=== PATIENT | female | born 1985 | race American Indian/Alaskan Native ===

== ENCOUNTER 2016-05-23 15:31 | Inpatient (IN) | payer MEDICAID ==
--- NOTE | 2016-05-23 16:15 | History and Physical Report ---
History of Present Illness Date of examination: 05/23/16 Chief complaint: Oligohydramnios History of present illness: 30 year-old at 38 weeks presents for delivery; she is a [facility] patient. Essential history patient with morbid obesity was seen at the [facility] office today with oligo noted, ELE is reported as < 5. MFM recommended delivery course has been unremarkable She recently lost a 2 year old with trisomy 18 Currently denies any vaginal bleeding plus movement plus leaking fluid plus occasional contractions Status post in [place] in 2011 Past History Past Medical History: no pertinent history Past Surgical History: section MAIL DISTRIBUTOR History: denies: cancer, chlamydia, gonorrhea, hepatitis B, hepatitis C, HIV Social history: single, full code. denies: smoking, alcohol abuse, prescription drug abuse, IV drug use - Obstetrical History Expected Date of Delivery: 05/31/16 Actual Gestation: 38 Week(s) 6 Day(s) : 7 Para: 4 Hx # Term Pregnancies: 4 Number of Pregnancies: 0 Spontaneous Abortions: 2 Number of Living Children: 3 Review of Systems Constitutional: no fever, no chills, no night sweats Cardiovascular: no chest pain, no orthopnea, no syncope, no lightheadedness, no shortness of breath, no dyspnea on exertion, no paroxysmal nocturnal dyspnea Respiratory: no cough with sputum, no shortness of breath, no dyspnea on exertion Gastrointestinal: no abdominal pain, no nausea, no vomiting, no heartburn Genitourinary: leakage of fluid, no vaginal bleeding, no vaginal discharge - Physical Exam Breasts: Positive: deferred Cardiovascular: Regular rate, Normal S1, Normal S2 Lungs: Positive: Clear to auscultation, Normal air movement Abdomen: Positive: normal appearance, soft. Negative: distention, tenderness, guarding, rigidity Uterus: Positive: enlarged (Difficult to Hyperion Administrator due to body habitus), other ( Difficult to Hyperion Administrator due to body habitus) Extremities: Positive: normal - Obstetrical Cervical Dilatation: 0 (per pt from last exam) Results All other labs normal. Assessment and Plan 30 y/o at 38+6 wks with oligo -MFM recommends delivery Issues -Morbid Obesity -Prior C-S (no OP note available) -Desires permanent sterilization but consent unsigned P: -Will proceed with repeat LTCS -Patient has been consented -NB:Patient chewing gum on arrival so surgery per anesthesia clearance - Patient Problems (1) 38 weeks gestation of Current Visit: Yes Status: Acute (2) Maternal morbid obesity in third trimester, antepartum Current Visit: Yes Status: Acute (3) Oligohydramnios in third trimester Current Visit: Yes Status: Acute (4) History of Current Visit: Yes Status: Acute
[2016-05-23] MEDS ORDERED: NACL 0.9% 500 ML 500 ML IV ONE (16:25)
[2016-05-23] MEDS ORDERED: LACTATED RINGERS 2,000 ML ONE (16:31)
[2016-05-23] MEDS ORDERED: ANCEF/NS 1 GM/50 ML 50 ML IV NR (17:00)
[2016-05-23] MEDS ORDERED: ANCEF/STERILE WATER 2 GM/20 ML 20 ML IV SCH (17:00)
[2016-05-23 17:36] LABS: Basophils % (Auto) 0.3 % (0.0-1.8); Eosinophils % (Auto) 1.9 % (0.0-4.3); Hematocrit 35.8 % (30.3-42.9); Hemoglobin 11.4 gm/dl (10.1-14.3); Mean Corpuscular HGB Conc 32 % (30-34); Mean Corpuscular Hemoglobin 26 pg (28-32); Mean Corpuscular Volume 82 fl (79-97); Platelet Count 363 K/mm3 (140-440); Red Blood Count 4.36 M/mm3 (3.65-5.03); Red Cell Distribution Width 16.1 % (13.2-15.2); White Blood Count 11.6 K/mm3 (4.5-11.0)
[2016-05-23] MEDS ORDERED: PEPCID IV ONE (17:56)
[2016-05-23] MEDS ORDERED: REGLAN IV ONE (17:56)
[2016-05-23] MEDS ORDERED: BICITRA PO ONE (17:56)
[2016-05-23] MEDS ORDERED: LACTATED RINGERS 1,000 ML IV NR (18:00)
[2016-05-23] MEDS ORDERED: PITOCin/NS 20 UNIT/1000ML DRIP 1,000 ML IV NR (18:00)
--- NOTE | 2016-05-23 18:43 | Anesthesia Consultation ---
Anesthesia Consult and Med Hx Date of service: 05/23/16 - Airway Anesthetic Teeth Evaluation: Good ROM Head & Neck: Adequate Mental/Hyoid Distance: Adequate Mallampati Class: Class II Intubation Access Assessment: Probably Good - Pulmonary Exam CTA: Yes - Cardiac Exam Cardiac Exam: RRR - Pre-Operative Health Status ASA Pre-Surgery Classification: ASA3 Proposed Anesthetic Plan: Spinal - Pulmonary Hx Asthma: No Hx Sleep Apnea: No - Cardiovascular System Hx Hypertension: No Hx Coronary Artery Disease: No - Central Nervous System Hx Seizures: No Hx Psychiatric Problems: No - Endocrine Hx Renal Disease: No Hx Liver Disease: No Hx Insulin Dependent Diabetes: No Hx Hypothyroidism: No Hx Hyperthyroidism: No - Hematic Hx Anemia: No Hx Sickle Cell Disease: No - Other Systems Hx Alcohol Use: No Hx Obesity: Yes (morbid, BMI 51.6)
[2016-05-23] MEDS ORDERED: TORADOL IV PRN (18:44)
--- NOTE | 2016-05-23 18:44 | Anesthesia Day of Surgery ---
Anesthesia Day of Surgery - Day of Surgery Patient Examined: Yes Patient H&P Reviewed: Yes Patient is NPO: Yes
[2016-05-23] MEDS ORDERED: MORPHINE IV PRN ×2 (18:45→18:46)
[2016-05-23] MEDS ORDERED: MORPHINE ONE (20:20)
[2016-05-23] MEDS ORDERED: NACL 0.9% IR ONE (20:22)
[2016-05-23] MEDS ORDERED: WATER FOR IRRIG STERILE IR ONE (20:22)
[2016-05-23] MEDS ORDERED: ZOFRAN ONE (20:35)
[2016-05-23] MEDS ORDERED: ANCEF ONE (20:41)
[2016-05-23] MEDS ORDERED: NEO SYNEPHRINE/NS Syringe(OR USE) IV ONE (20:50)
[2016-05-23] MEDS ORDERED: VERSED ONE (20:57)
--- NOTE | 2016-05-23 21:51 | Operative Report ---
Operative Report Operative Report: DATE: 05/23/2016 PREOPERATIVE DIAGNOSIS: 30-year-old at 38+6 weeks, Oligohydramnios, morbid obesity, Prior POSTOP DIAGNOSIS: Same plus adhesions NAME OF PROCEDURE: Repeat low transverse section Adhesive lysis SURGEON: WHITNEY CALVILLO MD REGULATORY ADMINISTRATOR: [] ANESTHESIA: Combined spinal epidural EBL: 700 mL PATHOLOGY SPECIMEN: None URINE OUTPUT: 300 mL FINDINGS: Male infant in cephalic presentation, time of was 2058, Apgars 8 and 9, weight was 7 lbs. 4 oz. or 3288 g, normal uterus tubes and ovaries bilaterally, significant adhesions of omentum to anterior abdominal wall and uterus DESCRIPTION OF PROCEDURE: She was taken to the operating room where she was prepped and draped in a sterile fashion, she was placed in the dorsal supine position. Pfannenstiel incision was performed through her prior incisional scar which was carried through to underlying rectus fascia which was on the midline. The fascial incision was extended laterally with use of Steiner scissors , the anterior leaf was then grasped with Kochers forceps elevated dissected sharply and bluntly off the underlying rectus in a similar fashion inferior leaf was grasped elevated dissected sharply and bluntly off the underlying rectus. The rectus was in the midline, good visualization of bladder was noted. Significant adhesions were noted and adhesiolysis performed. A bladder blade was placed in the patient's pelvic cavity; bladder flap could not be created. A hysterotomy incision was then performed in the lower segment with clear amniotic fluid noted, hysterotomy incision was extended laterally with the use of fingers manually. in cephalic presentation was delivered in the usual manner; cord was clamped and cut was handed over to waiting nursery staff. The placenta was then delivered manually intact, the uterus was exteriorized cleared of all clots and debris. Hysterotomy incision was then closed in a running locked fashion with 0 Vicryl on a CTX; using the same suture was imbricate the initial layer. Interrupted [id number] stitches were used to obtain hemostasis. Uterus was then returned to the patient's pelvic cavity; peritoneal edges were grasped with hemostats and Ciara' s elevated copiously irrigation was used to clear the gutters of all clots and debris. Tercel hemostatic agent was then applied to the hysterotomy incision as a means to prevent future bleeding. The peritoneal layer was then closed in a running fashion with 2-0 Vicryl and the rectus was reapproximated with a single [id number] stitch. The fascia was closed in a running fashion with 0 Vicryl and tied in the opposite side. The subcutaneous layer was irrigated and then reapproximated with interrupted [id number] stitches. The skin was closed in a subcuticular manner with 4-0 Vicryl. She tolerated the procedure well lap and instrument counts were correct 2 she did receive 3 g of Ancef prior to incision she is transferred to PACU in stable condition thank you.
[2016-05-23] MEDS ORDERED: TYLENOL PO PRN (21:52)
[2016-05-23] MEDS ORDERED: TUCKS PAD TP PRN (21:52)
[2016-05-23] MEDS ORDERED: PHENERGAN PR PRN (21:52)
[2016-05-23] MEDS ORDERED: ZOFRAN IV PRN (21:52)
[2016-05-23] MEDS ORDERED: LANSINOH TP PRN (21:52)
[2016-05-23] MEDS ORDERED: NARCAN 0.4 MG/1 ML IV PRN (21:52)
[2016-05-23] MEDS ORDERED: SENOKOT PO PRN (21:52)
[2016-05-23] MEDS ORDERED: SODIUM CHLORIDE FLUSH SYRINGE 10 ML IV PRN (22:00)
[2016-05-23] MEDS ORDERED: PITOCin/NS 20 UNIT/1000ML DRIP 1,000 ML IV SCH (22:00)
[2016-05-23] MEDS ORDERED: D5LR 1,000 ML IV SCH (22:00)
[2016-05-24] MEDS ORDERED: BOOSTRIX IM ONE (06:00)
--- NOTE | 2016-05-24 08:17 | Progress Note ---
Assessment and Plan POD # 1 s/p Repeat LTCS -Doing well P: -Continue routine post op care -Anticipate discharge at 24-48 hours - Patient Problems (1) Status post repeat low transverse section Current Visit: Yes Status: Acute (2) 38 weeks gestation of Current Visit: Yes Status: Acute (3) Maternal morbid obesity in third trimester, antepartum Current Visit: Yes Status: Acute (4) Oligohydramnios in third trimester Current Visit: Yes Status: Acute (5) History of Current Visit: Yes Status: Acute Subjective - Subjective Date of service: 05/24/16 Principal diagnosis: POD# 1 s/p Repeat LTCS Interval history: Patient seen on exam, stable doing well. No fever or chills, appropriate lochia flow, pain well controlled Patient reports: appetite normal, voiding normally, pain well controlled Norris: doing well Objective - Vital Signs Latest vital signs: Vital Signs Temp Pulse Pulse Resp BP BP Pulse Ox 05/24/16 04:30 97.4 F L 83 20 120/44 05/24/16 00:00 97.7 F 80 20 113/54 05/23/16 22:59 16 05/23/16 22:55 81 14 102/60 100 05/23/16 22:50 82 17 94/59 100 05/23/16 22:45 79 20 110/60 100 05/23/16 22:40 81 23 101/56 100 05/23/16 22:35 51 L 17 100/51 99 05/23/16 22:30 62 17 104/56 97 05/23/16 22:25 70 22 102/65 100 05/23/16 22:20 77 21 114/66 99 05/23/16 22:18 81 23 115/73 100 05/23/16 22:15 77 22 115/73 100 05/23/16 22:12 22 05/23/16 22:10 76 25 H 115/70 100 05/23/16 22:05 82 28 H 118/70 100 05/23/16 22:00 97.7 F 93 H 24 120/70 100 05/23/16 21:56 100 05/23/16 19:25 108 H 139/83 05/23/16 19:24 98.3 F 108 H 22 139/83 05/23/16 17:44 106 H 99 05/23/16 17:39 98 H 99 01/09/17 17:34 98 H 100 05/23/16 17:29 102 H 97 05/23/16 17:24 103 H 99 05/23/16 17:19 104 H 100 05/23/16 17:14 102 H 99 05/23/16 17:09 108 H 99 05/23/16 17:04 98 H 98 05/23/16 16:59 104 H 100 05/23/16 16:54 116 H 98 05/23/16 16:50 97.5 F L 110 H 99 H 20 137/77 137/77 05/23/16 16:49 117 H 98 Intake and Output 05/23/16 05/24/16 05/24/16 22:59 06:59 14:59 Intake Total 1000 1970 Output Total 300 350 Balance 700 1620 Intake: IV 1000 1850 D5lr 1,000 ml @ 125 mls/ 500 hr IV DIRECT SPENCER Rx#: [id number] PITOCin/NS 20 UNIT/1000ML 500 DRIP 1,000 ML @ 250 mls/ hr IV TITR SPENCER Rx#: [id number] Oral 120 Output: Urine 300 350 Indwelling Catheter 250 Other: Total, Intake Amount 120 Total, Output Amount 250 Weight 140.614 kg Estimated Blood Loss 700 - Exam Abdomen: Present: normal appearance, soft. Absent: distention, tenderness, guarding, rigidity Uterus: Present: firm Extremities: Present: normal Incision: Present: dressed - Labs Labs: Abnormal lab results 05/23/16 05/23/16 Range/Units 17:15 17:15 WBC 11.6 H (4.5-11.0) K/mm3 MCH 26 L (28-32) pg RDW 16.1 H (13.2-15.2) % Frederick % (Auto) 7.7 H (0.0-7.3) % Frederick # 0.9 H (0.0-0.8) K/mm3 Seg Neutrophils # 8.0 H (1.8-7.7) K/mm3 Crossmatch See Detail
[2016-05-24 11:09] LABS: Hematocrit 33.3 % (30.3-42.9); Hemoglobin 10.7 gm/dl (10.1-14.3)
[2016-05-24] MEDS ORDERED: FLUARIX QUAD 2016-2017(36 MOS+) IM ONE (12:00)
[2016-05-24] MEDS: FEOSOL PO SCH (12:21)
[2016-05-24] MEDS: MOTRIN PO PRN ×2 (12:22→23:21)
[2016-05-24] MEDS: PRENATAL VITAMIN PO SCH (12:22)
[2016-05-24] MEDS: MYLICON PO PRN (21:36)
[2016-05-24] MEDS: MILK OF MAGNESIA PO PRN (21:36)
--- NOTE | 2016-05-25 08:16 | Progress Note ---
Assessment and Plan - Patient Problems (1) Status post repeat low transverse section Diagnosis Date: 05/25/16 Current Visit: Yes Status: Resolved Plan to address problem: A: S/P Repeat C Section - POD #2 Doing well P: May go home today Subjective - Subjective Date of service: 05/25/16 Principal diagnosis: POD# 2 - s/p Repeat LTCS Interval history: Pt is feeling well without complaints. Tolerating a reg diet without nausea or vomiting, ambulating and voiding without difficulty. She requests to go home today. Patient reports: appetite normal, voiding normally, pain well controlled, flatus , ambulating normally [place]: doing well, nursing well Objective - Vital Signs Latest vital signs: Vital Signs Temp Pulse Resp BP BP 05/24/16 23:55 98.5 F 109 H 20 147/61 05/24/16 22:00 128/84 05/24/16 20:00 98.2 F 96 H 20 144/67 05/24/16 15:40 98.4 F 97 H 20 127/68 05/24/16 13:01 97.9 F 88 20 130/70 05/24/16 08:15 98.1 F 79 18 109/56 Intake and Output 05/24/16 05/25/16 05/25/16 22:59 06:59 14:59 Intake Total 240 240 Balance 240 240 Intake: Oral 240 240 Other: Total, Intake Amount 240 240 - Exam Cardiovascular: Present: Regular rate Lungs: Present: Clear to auscultation Abdomen: Present: normal appearance, soft Uterus: Present: normal, firm, fundal height below umbilicus Extremities: Present: normal Incision: Present: normal, dry, intact, dressed
--- NOTE | 2016-05-25 08:18 | Discharge Summary ---
Providers - Providers Date of Admission: 05/23/16 16:25 Date of discharge: 05/25/16 Attending physician: WHITNEY CALVILLO Primary care physician: WHITNEY CALVILLO Hospitalization Reason for admission: section, IUP at term, other (Oligohydramnios) Delivery: Procedure: section, repeat low transverse Episiotomy: none Incision: normal, dry, intact Other procedures: none complications: none Discharge diagnosis: IUP at term delivered [place] baby: male Hospital course: Pt is a 30 year-old BF at 38 weeks who presented for delivery; she is a [facility] patient. Essential history - patient with morbid obesity was seen at the [facility] office with oligohydramnios, ELE is reported as < 5 , so [facility] recommended delivery. She underwent an uncomplicated repeat C Section and she tolerated the procedure well. Post operative course was uneventful, and by POD #2 she was tolerating a reg diet without nausea or vomiting, ambulating and voiding without difficulty, so she was therefore discharged to home on POD #2 in stable condition. Condition at discharge: Good Disposition: DISCHARGED TO HOME OR SELFCARE - Discharge Diagnoses (1) Status post repeat low transverse section Status: Resolved Plan - Discharge Medications Prescriptions: Ibuprofen [Motrin 600 MG tab] 600 mg PO Q8H PRN #30 tablet PRN Reason: Pain Multivitamin with Iron [Multivitamins with Iron] 1 each PO DAILY #30 tablet oxyCODONE /ACETAMINOPHEN [Percocet 5/325] 1 tab PO Q6HR PRN #30 tablet PRN Reason: Pain - Provider Discharge Summary Activity: routine, no sex for 6 weeks, no heavy lifting 4 weeks, no strenuous exercise Diet: routine Instructions: routine Additional instructions: [] Smoking cessation referral if applicable(refer to patient education folder for contact #) [] Refer to [facility] Booklet Call your doctor immediately for: * Fever > 100.5 * Heavy vaginal bleeding ( >1 pad per hour) * Severe persistent headache * Shortness of breath * Reddened, hot, painful area to leg or breast * Drainage or odor from incision. * Keep incision clean and dry at all times and follow doctor's instructions regarding bathing/showering - Follow up plan Follow up: WHITNEY CALVILLO MD [Primary Care Provider] - 14 Days
[2016-05-25] MEDS: PERCOCET 5/325 PO PRN ×2 (12:53→20:10)
[2016-05-25] MEDS: MOTRIN PO PRN (12:54)
[2016-05-25] MEDS: MYLICON PO PRN ×2 (12:55→21:26)
[2016-05-25] MEDS: MILK OF MAGNESIA PO PRN (21:26)
[2016-05-26] MEDS: PERCOCET 5/325 PO PRN (04:47)
[2016-05-26] MEDS: PRENATAL VITAMIN PO SCH (11:38)
[2016-05-26] MEDS: MOTRIN PO PRN (11:38)
[2016-05-26] MEDS: FEOSOL PO SCH (11:38)
[2016-05-26 12:45] VITALS: BP 104/78
== END 2016-05-26 13:35 | disposition home or self-care (01) | DRG 765 ==
LOC: TRG 15:31 → LD 16:25 → APU 20:20 → OB 23:05
PROVIDERS: ADMIT Obstetrics & Gynecology Gynecology; ATTEND Obstetrics & Gynecology Gynecology
PROC: 10D00Z1 Extraction of Products of Conception, Low, Open Approach (ICD-10-PCS; principal; 2016-05-23)
DX: O41.03X0 Oligohydramnios, third trimester, not applicable or unspecified (principal); Z68.43 Body mass index [BMI] 50.0-59.9, adult; O34.211 Maternal care for low transverse scar from previous cesarean delivery; E66.01 Morbid (severe) obesity due to excess calories; O99.214 Obesity complicating childbirth; Z3A.38 38 weeks gestation of pregnancy; Z37.0 Single live birth
CPT/HCPCS: 36415; 85014; 85018; 85025; 86850; 86900; 86901; 86920; 90471; 90686; 90715; 99211; C9250; G0463; J0690; J1885; J2250; J2270; J2370; J2405; J2590; J2765; J7120; J7121